=== PATIENT | male | born 1975 | race African-American/Black ===

== ENCOUNTER 2017-05-26 06:20 | Inpatient (IN) | payer OTHER ==
[~2017-05-26] VITALS: Ht 175.3 cm; Wt 63.5 kg
--- NOTE | 2017-05-26 06:24 | NUR ---
PT PELON ALS. TAKEN TO BED 5
[2017-05-26 06:26] VITALS: BP 113/67
--- NOTE | 2017-05-26 06:29 | NUR ---
41Y/M BIBA TO ED WITH C/O CHEST PAIN X 1 HR. PER MEDIC PT STARTED HAVING CHEST PAIN AFTER 2 HRS OF DIALYSIS AND, 300 ML FLUID REMOVAL, 2 NTG GIVEN. PER PT HE WAS DIAGNOSED BRONCHITIS YESTERDAY. HX. ESRD, HTN, ALCOHOLISM, AND KIDNEY DISEASE. BS 134 ON SCENE. TACHY ON MONITOR, O2 SAT 99, 15 LT O2 VIA MASK. CRACKLES NOTED ON BILATERAL LUNG BASES,NO OTHER S/S OF DISTRESS NOTED. ER MD MADE AWARE.
--- NOTE | 2017-05-26 06:42 | NUR ---
Dr. Trinh evaluating patient at bedside.
[2017-05-26] MEDS ORDERED: NACL 0.9% 1,000 ML IV ONE (06:51)
--- NOTE | 2017-05-26 07:09 | NUR ---
RT AT BEDSIDE FOR ABG
[2017-05-26 07:13] LABS: HEMATOCRIT 31.7 % (36-52); HEMOGLOBIN 10.4 g/dL (12.0-18.0); MEAN CORPUSCULAR HEMOGLOBIN 28 pg (27-31); MEAN CORPUSCULAR HGB CONC 33 g/dL (33-37); MEAN CORPUSCULAR VOLUME 84 fL (80-94); PLATELET COUNT (AUTO) 426 K/uL (140-450); RED BLOOD CELL COUNT(AUTO) 3.77 MIL/uL (4.20-6.10); RED CELL DISTRIBUTION WIDTH 18.3 % (11.6-13.7); WHITE BLOOD COUNT (AUTO) 13.6 K/uL (4.8-10.8)
--- NOTE | 2017-05-26 07:14 | NUR ---
TPt report given to SANCHEZ GALEAS. Transfer of care at this time.
--- NOTE | 2017-05-26 07:20 | NUR ---
X-Ray at bedside.
[2017-05-26 07:22] LABS: ALBUMIN 2.7 g/dL (3.4-5.0); ANION GAP 19.2 (8-16); CARBON DIOXIDE 26.7 mmol/L (21-32); POTASSIUM 3.9 mmol/L (3.5-5.1); TOTAL BILIRUBIN 0.7 mg/dL (0.0-1.0)
[2017-05-26 07:25] LABS: CREATININE 7.5 mg/dL (0.7-1.3)
[2017-05-26 07:34] LABS: LYMPHOCYTES % (MANUAL) 7 % (20-46); MONOCYTES % (MANUAL) 12 % (5-12)
--- NOTE | 2017-05-26 07:35 | NUR ---
TRIED O2 VUA NC AT 2 LPM BUT O2 SAT DROPS TO 89% PUT PT BACK TO FACE MASK; 02 SAT IS AT 95 %;WILL CONTINUE TO MONITOR PT.
--- NOTE | 2017-05-26 07:47 | NUR ---
PT SLEEPING;ALL MONITORS IN PLACED;PLACED PT IN HIGH FOWLERS POSITION;SAFETY MEASURES DONE;WILL CONTINUE TO MONITOR PT.
--- NOTE | 2017-05-26 08:15 | NUR ---
PT O2 SAT DROPS TO 89%;INSTRUCTED PT TO DO DEEP BREATHING;NOTIFIED ER MD;PUT PT TO 15 LPM VIA MASK;ALL MONITORS IN PLACED;WILL OSKAR UE TO MONITOR PT.
--- NOTE | 2017-05-26 08:20 | NUR ---
O2 SAT WENT UP TO 92%;WILL CONTINUE TO MONITOR PT.
--- NOTE | 2017-05-26 08:40 | NUR ---
PENNY AGUIRRE AT BEDSIDE.
[2017-05-26] MEDS ORDERED: ACETAMINOPHEN 325 MG TAB PO PRN (08:50)
[2017-05-26] MEDS ORDERED: ONDANSETRON 4 MG/2 ML VIAL IVP PRN (08:50)
[2017-05-26] MEDS ORDERED: DOCUSATE SODIUM 100 MG GELCAP PO PRN (08:50)
--- NOTE | 2017-05-26 08:58 | NUR ---
ASKED PT IF HE IS ABLE TO GIVE URINE SPECIMEN;PT STATES "NO".
[2017-05-26] MEDS ORDERED: ALBUTEROL SULFATE/IPRATROPIU 3 ML SOL IH PRN (09:05)
[2017-05-26 09:19] LABS: CHOL/HDL RATIO 8.8 (1-4.5); FREE T4 (FREE THYROXINE) 1.44 ng/dL (0.76-1.46); PHOSPHORUS 5.7 mg/dL (2.5-4.9); THYROID STIMULATING HORMONE 0.6 uIU/mL (0.34-3.74)
--- NOTE | 2017-05-26 09:19 | NUR ---
Patient will be admitted to care of DR NUNEZ. Admited to TELE. Will go to [id number]. Belongings list completed. Report to ELKE BRADFORD.
[2017-05-26 09:50] VITALS: BP 139/89
--- NOTE | 2017-05-26 09:50 | NUR ---
PATIENT ADMITTED TO THE UNIT FROM ER. PATIENT AMBULATORY. PATIENT AWAKE, ALERT, AND ORIENTED. LABORED BREATHING NOTED. PATIENT PUT ON NON-REBREATHER MASK 15L O2. O2 SAT AT 96%. PATIENT DENIES PAIN AT THIS TIME. AV SHUNT NOTED ON LEFT ARM. BRUIT AND THRILL NOTED. IV SITE NOTED ON RIGHT FOREARM. PATIENT PLACED ON TELE MONITORING. BED ON LOWEST POSITION, SIDE RAILS UP, AND CALL LIGHT WITHIN REACH. WILL CONTINUE TO MONITOR.
--- NOTE | 2017-05-26 10:00 | NUR ---
PATIENT'S TEMPERATURE IS 101.4 DEGREES. ADMINISTERED TYLENOL ORDERED. WILL CONTINUE TO MONITOR.
[2017-05-26] MEDS ORDERED: CARVEDILOL 6.25 MG TAB PO SCH (10:20)
[2017-05-26] MEDS ORDERED: LOSARTAN 50 MG TAB PO SCH (10:45)
[2017-05-26] MEDS ORDERED: CARVEDILOL 12.5 MG TAB PO SCH (10:50)
--- NOTE | 2017-05-26 11:00 | NUR ---
PATIENT'S TEMP RECHECKED. TEMP 99.8
[2017-05-26] MEDS ORDERED: ECOTRIN 81 MG TABEC PO SCH (11:50)
[2017-05-26] MEDS: ALBUTEROL SULFATE/IPRATROPIU 3 ML SOL IH SCH ×2 (11:55→19:26)
[2017-05-26 12:00] VITALS: BP 116/69
[2017-05-26] MEDS ORDERED: FERRIC GLUCONATE 125 MG in NACL 0.9% 100 ML IV SCH (14:30)
--- NOTE | 2017-05-26 15:40 | NUR ---
PATIENT SEEN BY DR MCCLOUD
[2017-05-26 16:00] VITALS: BP 125/78
[2017-05-26] MEDS ORDERED: LOSA25TA14 PO (16:05)
[2017-05-26] MEDS ORDERED: OXYM22SP NS (16:05)
[2017-05-26] MEDS ORDERED: CARV25TA PO (16:05)
[2017-05-26] MEDS ORDERED: CLON0.2T43 PO (16:06)
--- NOTE | 2017-05-26 17:30 | NUR ---
HEMODIALYSIS DONE. 2.5L OUT. PATIENT AWAKE AND ALERT. BP 116/73. HR 119 TEMP 99.6 O2 SAT 99% ON 45% FIO2
[2017-05-26] MEDS: DEXT 5% / NACL 0.45% 1,000 ML IV SCH (17:54)
[2017-05-26] MEDS: PIPER/TAZO 2.25GM/D5W PREMIX 50 ML IV SCH (17:55)
--- NOTE | 2017-05-26 18:00 | NUR ---
O2 SAT AT 87% ON 45% FIO2. LABORED BREATHING NOTED. RT NOTIFIED
--- NOTE | 2017-05-26 18:20 | NUR ---
RT ADJUSTED BIPAP FIO2 TO 100%. O2 SAT AT 97%
--- NOTE | 2017-05-26 18:56 | NUR ---
PATIENT LOOSENED THE BIPAP MASK VELCRO STRIPS, REMOVING THE TIGHT SEAL. PATIENT STATES HE FEELS BETTER THAT WAY. O2 SATURATION AT 97%. WILL CONTINUE TO MONITOR
--- NOTE | 2017-05-26 19:02 | NUR ---
PATIENT REQUESTED TO BE OFF THE BIPAP. PATIENT PLACED ON 9L O2 VIA OXYMIZER. O2 SAT 92%. WILL CONTINUE TO MONITOR
--- NOTE | 2017-05-26 19:15 | NUR ---
RECEIVED PT FROM ELKE BRADFORD PT IS AAOX4 AMBULATORY ON BIPAP FIOS 100% NOT DISTRESS NOTED RESP THERAPY IS HERE GIVEN BREATHING TX, AV SHUNT FOR DIALYSIS ON LEFT UA, ON TELEMETRY ST INITIAL ASSESSMENT DONE
--- NOTE | 2017-05-26 19:30 | NUR ---
PATIENT REPORT GIVEN TO NIGHT NURSE AT BEDSIDE. PATIENT IS IN STABLE CONDITION. PATIENT GETTING BREATHING TREATMENT AT THE MOMENT.
--- NOTE | 2017-05-26 19:36 | NUR ---
PT WAS REMOVED FROM BIPAP TO EAT, BUT I FIND PT IN MILD DISTRESS , SATS OF 84%, AND HARD TIME TO BREATH , USING ALL THE ACCS. PADMINI, .PLACED PT ON BIPAP OF 100 %, , PT WAS EXPT MOD AMOUT OF MUCUS PLUG CREAM OF COLOR TO SENDED TO THE LAB.
[2017-05-26 20:00] VITALS: BP 111/69
--- NOTE | 2017-05-26 21:30 | NUR ---
RESP THERAPY CHANGE FIO2 TO 75% PT GETTING SLEEP NOT DISTRESS NOTED ON TELEMETRY ST
[2017-05-26] MEDS ORDERED: NITROGLYCERIN 0.4 MG TAB SL PRN ×2 (21:55→22:10)
[2017-05-26] MEDS: CARVEDILOL 12.5 MG TAB PO SCH (22:01)
[2017-05-27] VITALS (60 sets, daily range): BP systolic 81–119; BP diastolic 51–77
[2017-05-27] MEDS: PIPER/TAZO 2.25GM/D5W PREMIX 50 ML IV SCH ×4 (00:03→17:45)
--- NOTE | 2017-05-27 00:05 | NUR ---
LAB REPORT CRITICAL VALUES TROPONIN 0.169 THE RESIDENT WILL BE NOTIFY
--- NOTE | 2017-05-27 00:10 | NUR ---
DR ROMERO WAS NOTIFY TROPONIN 0.169 AND ORDER TO FOLLOW PT ON BIPAP NOT CHEST PAIN, ON TELMETRY ST
[2017-05-27] MEDS ORDERED: HEPARIN PER PHARMACY MC PRN (00:15)
[2017-05-27] MEDS ORDERED: hePARIN / DEXT 5% PREMIX 250 ML IV SCH ×3 (00:15→17:20)
--- NOTE | 2017-05-27 01:44 | NUR ---
HEPARIN DRIP STARTED AT 1100UNITS/H ON CLOSE MONITORING RESP THERAPY IS HERE 02 87% FI0S WAS CHANGE TO 80%
--- NOTE | 2017-05-27 02:31 | NUR ---
DR ROMERO WAS NOTIFY PT CONDITION HR 170 AND SHE COMES TO SEE THE PT
--- NOTE | 2017-05-27 02:45 | NUR ---
RESP THERAPKY IS HERE VITAL SIGNS, TEMP 99.3 HR 153 BP 144/76 02 88% AND FIO2 WAS ALREADY INCREASE TO 100.
[2017-05-27] MEDS ORDERED: DILTIAZEM 25 MG/5 ML VIAL IVP SCH (03:00)
--- NOTE | 2017-05-27 03:02 | NUR ---
DR ROMERO SEE THE PT RESP THERAPY IS HERE AND ORDER PT TO BE TRANSFER TO ICU, REPORT IS GIVEN TO LEE MORA RN ICU
--- NOTE | 2017-05-27 03:05 | NUR ---
PT IS TRANSFER TO ICU TO BED # 5
[2017-05-27] MEDS ORDERED: DILTIAZEM 25 MG/5 ML VIAL IVP ONE ×2 (03:06→03:48)
--- NOTE | 2017-05-27 03:10 | NUR ---
PT TRANSFER TO ICU DUE TO BP DECREASED TO 79/62, AND HR TO 176, ABG DONE, DR DOWNING TO BED SIDE.
[2017-05-27] MEDS ORDERED: DILTIAZEM 125 MG in DEXTROSE 5% 100 ML IV SCH (03:25)
[2017-05-27] MEDS ORDERED: DILTIAZEM 125 MG/25 ML VIAL IV ONE (03:34)
[2017-05-27] MEDS ORDERED: KETAMINE 500 MG/5 ML VIAL IVP SCH (03:55)
[2017-05-27] MEDS ORDERED: KETAMINE 500 MG/5 ML VIAL ONE (04:00)
--- NOTE | 2017-05-27 04:30 | NUR ---
PATIENT RECEIVED FROM TELE TO ICU5 AT 0310, PATIENT WAS ALERT AND AWAKE, VERBAL, ON NRM, ATRIAL FIB ON THE MONITOR WITH HR 162-170. RESPIRATORY THERAPIST KEISHA GETTING READY WITH BIPAP TO USE, DR ROMERO (RESIDENT) AT BEDSIDE. ABG WAS ORDERED, CARDIZEM DRIP ORDERED AND STARTED AROUND 0339 AT 10 MG/HR. PATIENT FOR POSSIBLE INTUBATION, DR. OSEGUERA CALLED DOCTOR DOWNING FROM ED FOR ASSISTANCE. DR. DOWNING CAME TO ICU, ASSESSED PATIENT, INSTRUCTED TO GIVE ANOTHER CARDIZEM 10 MG IVP, DR. OSEGUERA ENTERED ORDER, CARDIZEM 10 MG IVP GIVEN SLOWLY AT 0341, CARDIZEM DRIP INCREASED TO 15 MG/HR AT 0346, HR STILL ELEVATED. DR. DOWNING PLANNED TO CARDIOVERT, KETAMINE 70 MG IVP GIVEN AT 0400, CARDIOVERSION DONE AT 0407, RHYTHM CONVERTED TO ST, HR 116. EKG DONE STAT, SHOWED SINUS TACHYCARDIA. ABG AND CXR ORDERED ALSO. PATIENT ADMITTED ALSO FROM TELE WITH HEPARIN DRIP AT 1100 UNITS/HR.
--- NOTE | 2017-05-27 04:58 | NUR ---
at 0420, pt report received from Amarilys amaya RN. pt awake and able to follow simple commands. on bipap fio2 at 95%. pt denies any pain, post cardioversion. sinus tach per litigation associate. on cardizem drip infusing at 15mg/hr and on heparin drip infusing at 1100 units/hr. iv sites on the rt fa g18 and rt 22 rt hand. hd site av shunt to left upper arm. abd soft and not distended. able to move all extremities. no signs of discomfort noted.
--- NOTE | 2017-05-27 05:30 | NUR ---
PT ON AND OFF SLEEP. NO RESP DISTRESS. REMAINS ON BIPAP 16/8, RATE 12, FIO2 100%. SR-ST PER ENROLLMENT MANAGEMENT VICE PRESIDENT, HR 90'-TO LOW 100's bpm. STILL INFUSING HEPARIN DRIP AT 1100 UNITS/HR AND CARDIZEM DRIP AT 15 MG/HR. NO COMPLAIN OF PAIN NOTED.
--- NOTE | 2017-05-27 06:00 | NUR ---
CARDIZEM DRIP TITRATED, DECREASED TO 10 MG/HR. HR ON TH E 90's bpm, BP 90/57. PT A LITTLE ANXIOUS WITH RR ON THE 30's. WILL CONTINUE TO MONITOR.
--- NOTE | 2017-05-27 06:30 | NUR ---
TITRATED CARDIZEM DRIP, DECREASED TO 5 MG/HR. HR ON THE 80's bpm, NSR PER WOOL GRADER, BP 97/59. DENIES PAIN.
[2017-05-27] MEDS: ALBUTEROL SULFATE/IPRATROPIU 3 ML SOL IH SCH ×3 (06:40→13:00)
--- NOTE | 2017-05-27 07:15 | NUR ---
PT REPORT GIVEN AT BEDSIDE TO DAY SHIFT NURSE KASIA. STILL INFUSING HEPARIN DRIP AT 11OO UNITS/HR AND CARDIZEM DRIP AT 5MG/HR. REMAINS ON NSR WITH HR ON THE 80's bpm.
--- NOTE | 2017-05-27 07:15 | NUR ---
RECEIVED REPORT FROM NIGHT RN FOR CONTINUITY OF CARE. PATIENT IS AWAKE, ALERT AND ORIENTED TO PERSON, PLACE, DATE AND TIME. ABLE TO FOLLOW SIMPLE COMMAND. SKIN WARM AND DRY. NO EDEMA NOTED. ON BIPAP, FIO2 AT 100%. RIGHT HAND PERIPHERAL IV G22 RUNNING WITH HEPARIN AT 1100 UNITS/HR. RIGHT FA PERIPHERAL IV RUNNING WITH CARDIZEM DRIP AT 5 ML/H AND D5 1/2 NS AT 20 ML/H. SALLY AV SHUNT, WITH DRESSING DRY AND INTACT. CALL LIGHT WITHIN REACH. WILL MONITOR PATIENT.
--- NOTE | 2017-05-27 07:45 | NUR ---
DR. NUNEZ AND RESIDENT PHYSICIANS ROUNDED ON PATIENT, WILL FOLLOW UP WITH ORDERS.
[2017-05-27 08:14] LABS: HEMATOCRIT 31.7 % (36-52); HEMOGLOBIN 9.9 g/dL (12.0-18.0); MEAN CORPUSCULAR HEMOGLOBIN 27 pg (27-31); MEAN CORPUSCULAR HGB CONC 31 g/dL (33-37); MEAN CORPUSCULAR VOLUME 85 fL (80-94); PLATELET COUNT (AUTO) 465 K/uL (140-450); RED BLOOD CELL COUNT(AUTO) 3.72 MIL/uL (4.20-6.10); RED CELL DISTRIBUTION WIDTH 19.6 % (11.6-13.7); WHITE BLOOD COUNT (AUTO) 19.1 K/uL (4.8-10.8)
--- NOTE | 2017-05-27 08:24 | NUR ---
PATIENT HAS BEEN SCREENED AND CATEGORIZED HIGH NUTRITION RISK. PATIENT WILL BE SEEN WITHIN 1-2 DAYS OF ADMISSION. 05/26/17-05/27/[address]
[2017-05-27 08:30] LABS: LYMPHOCYTES % (MANUAL) 15 % (20-46); MONOCYTES % (MANUAL) 6 % (5-12)
--- NOTE | 2017-05-27 08:59 | NUR ---
RT AT BEDSIDE, ON BIPAP FIO2 TITRATED TO 85%. WILL MONITOR PATIENT.
[2017-05-27] MEDS: LOSARTAN 50 MG TAB PO SCH (09:00)
[2017-05-27] MEDS ORDERED: LACTOBACILLUS RHAMNOSUS GG 1 EACH CAP PO SCH (09:00)
[2017-05-27] MEDS ORDERED: DILTIAZEM 30 MG TAB PO SCH (09:00)
[2017-05-27] MEDS: LACTOBACILLUS RHAMNOSUS GG 1 EACH CAP PO SCH (09:00)
[2017-05-27] MEDS: CARVEDILOL 12.5 MG TAB PO SCH (09:00)
--- NOTE | 2017-05-27 09:15 | NUR ---
PATIENT COMPLAINING OF SHORTNESS OF BREATH, RR 33. RT MADE AWARE.
--- NOTE | 2017-05-27 09:19 | NUR ---
PATIENT COMPLAIN OF SHORTNESS OF BREATH PRN TX GIVEN. PATIENT STABLE NO RESP DISTRESS
--- NOTE | 2017-05-27 09:20 | NUR ---
MORNING MEDICATIONS NOT GIVEN, PATIENT IS ON CONTINUOUS BIPAP AT THIS TIME. DR. ARCE MADE AWARE.
--- NOTE | 2017-05-27 09:35 | NUR ---
DR. ARCE NOTIFIED OF NEED TO RECOLLECT SPUTUM PER LAB.
[2017-05-27 10:03] LABS: CARBON DIOXIDE 24.1 mmol/L (21-32); POTASSIUM 5.1 mmol/L (3.5-5.1)
[2017-05-27 10:04] LABS: CREATININE 9.1 mg/dL (0.7-1.3)
[2017-05-27 10:31] LABS: MAGNESIUM 1.9 mg/dL (1.8-2.4)
[2017-05-27] MEDS ORDERED: LORazepam 1 MG TAB PO PRN (10:40)
[2017-05-27] MEDS ORDERED: VANCOMYCIN PER PHARMACY MC PRN (11:05)
[2017-05-27 11:15] LABS: TRANSFERRIN 96 mg/dL (200-370)
--- NOTE | 2017-05-27 11:15 | NUR ---
DR. MCCLOUD IN AND SEEN PATIENT. WILL FOLLOW UP WITH ORDERS.
[2017-05-27] MEDS ORDERED: VANCOMYCIN 1GM/DEXT 5% PREMIX 200 ML IV SCH (11:25)
--- NOTE | 2017-05-27 13:00 | NUR ---
DR. SADLER IN AND SEEN PATIENT. SCHEDULED PATIENT FOR DIALYSIS TOMORROW 05/28/17. WILL CALL CUNHAARISTEO VANG.
--- NOTE | 2017-05-27 13:34 | NUR ---
05/27/17 RD INITIAL ASSESSMENT COMPLETED PLEASE REFER TO NUTRITION ASSESSMENT UNDER CARE ACTIVITY FOR ESTIMATED NUTRITIONAL NEEDS. 1. CONTINUE RENAL DIET 2. CONTINUE RENAL MVI 1X/DAILY 3. IF NUTRITION SUPPORT NEEDED, PLEASE CONSULT RD FOR RECOMMENDATIONS 4. RD TO FOLLOW UP WITHIN 2-3 DAYS; HIGH RISK JESÚS SAMANIEGO, SANIA
--- NOTE | 2017-05-27 13:39 | NUR ---
REHAN MUÑIZ FROM [facility] NOTIFIED OF ORDER FOR HEMODIALYSIS TOMORROW.
--- NOTE | 2017-05-27 14:15 | NUR ---
CARDIZEM DRIP STOPPED AT THIS TIME DUE TO PARAMETERS BP 91/56. RESIDENT PHYSICIAN, DR. ARCE, MADE AWARE.
[2017-05-27] MEDS: DEXT 5% / NACL 0.45% 1,000 ML IV SCH (14:33)
[2017-05-27] MEDS ORDERED: PROBIOTIC SCREEN 1 EA MISC MC PRN (14:35)
--- NOTE | 2017-05-27 17:10 | NUR ---
DR. SHIN IN AND SEEN PATIENT. WITH ORDERS TO D/C HEPARIN WHEN XARELTO IS STARTED.
--- NOTE | 2017-05-27 17:30 | NUR ---
CALLED [facility]. [PER [facility] PT HAD PNEUMONIA VACCINE 05/17/2015. INFORMED PT.
[2017-05-27] MEDS: CALCIUM ACETATE 667 MG TAB PO SCH (17:43)
[2017-05-27] MEDS: RIVAROXABAN 15 MG TAB PO SCH (17:46)
--- NOTE | 2017-05-27 19:10 | NUR ---
REPORT GIVEN TO NIGHT RN FOR CONTINUITY OF CARE. PATIENT IN STABLE CONDITION.
--- NOTE | 2017-05-27 19:16 | NUR ---
RECEIVED REPORT FROM SANCHEZ PEDROZA. PT IS A/O X4. VERBALLY RESPONSIVE. ABLE TO COMMUNICATE NEEDS. NO C/O PAIN OR DISCOMFORT NOTED. NO C/O SOB. PT CONTINUE ON BIPAP. TOLERATING WELL. O2 SAT AT 99%. SR ON MONITOR. ABLE TO MOVE ALL EXTREMITIES. SKIN IS INTACT. L AV SHUNT NOTED. BRUIT AND THRILL NOTED. R FOREARM 18 GAUGE NOTED. INTACT AND PATENT. SALINE LOCKED. R HAND 22 GAUGE NOTED. INTACT AND PATENT. PT ABLE TO URINATE INDEPENDENTLY IN URINAL. SAFETY PRECAUTION MAINTAINED. BED AT LOWEST SETTING. CALL LIGHT WITHIN REACH. WILL CONTINUE TO MONITOR FOR CHANGES.
[2017-05-27] MEDS: ATORVASTATIN 20 MG TAB PO SCH (20:02)
--- NOTE | 2017-05-27 20:03 | NUR ---
MEDICATION GIVEN PO TOLERATED WELL.
--- NOTE | 2017-05-27 21:00 | NUR ---
PT IS A/O X4. VERBALLY RESPONSIVE. DENIES N/V. RESTING COMFORTABLY IN BED. WILL CONTINUE TO MONITOR.
--- NOTE | 2017-05-27 21:35 | NUR ---
PATIENT C/O NAUSEA,ZOFRAN GIVEN IV PUSH ORDER,ALSO C/O ANXIETY PO ATIVAN GIVEN PO ORDER RANJAN WELL.
--- NOTE | 2017-05-27 22:00 | NUR ---
MOM AT BEDSIDE. PT A/O X4. VERBALLY RESPONSIVE. NO S/X OF ACUTE DISTRESS NOTED. WILL CONTINUE TO MONITOR.
--- NOTE | 2017-05-27 23:00 | NUR ---
PT SLEEPING IN BED. RESTING COMFORTABLY WITH BIPAP. WILL CONTINUE TO MONITOR.
[2017-05-28] VITALS (20 sets, daily range): BP systolic 86–131; BP diastolic 45–76
[2017-05-28] MEDS: PIPER/TAZO 2.25GM/D5W PREMIX 50 ML IV SCH ×2 (00:30→05:38)
--- NOTE | 2017-05-28 00:33 | NUR ---
IV ABT ZOSYN 2.25 GRAM GIVEN ORDER VIA PIGGY BAG TO RIGHT FOREARM TOLERATED WELL
--- NOTE | 2017-05-28 01:00 | NUR ---
PT SLEEPING IN BED. NO S/SX OF ACUTE DISTRESS NOTED. WILL CONTINUE TO MONITOR.
--- NOTE | 2017-05-28 02:00 | NUR ---
PT SLEEPING IN BED. NO S/SX OF ACUTE DISTRESS NOTED. WILL CONTINUE TO MONITOR.
--- NOTE | 2017-05-28 03:00 | NUR ---
PT SLEEPING IN BED. NO S/SX OF ACUTE DISTRESS NOTED. WILL CONTINUE TO MONITOR.
--- NOTE | 2017-05-28 04:00 | NUR ---
PT SLEEPING IN BED. NO S/SX OF ACUTE DISTRESS NOTED. WILL CONTINUE TO MONITOR.
[2017-05-28 05:00] LABS: HEMATOCRIT 27.4 % (36-52); HEMOGLOBIN 8.9 g/dL (12.0-18.0); MEAN CORPUSCULAR HEMOGLOBIN 27 pg (27-31); MEAN CORPUSCULAR HGB CONC 32 g/dL (33-37); MEAN CORPUSCULAR VOLUME 84 fL (80-94); PLATELET COUNT (AUTO) 407 K/uL (140-450); RED BLOOD CELL COUNT(AUTO) 3.25 MIL/uL (4.20-6.10); RED CELL DISTRIBUTION WIDTH 18.8 % (11.6-13.7)
--- NOTE | 2017-05-28 05:00 | NUR ---
AMBULATE TO BEDSIDE COMMODE. LARGE SOFT FORM STOOL NOTED.
--- NOTE | 2017-05-28 05:38 | NUR ---
IV ABT ZOSYN GIVEN VIA PIGGY BAG TOLERATED WELL.
[2017-05-28 06:14] LABS: MAGNESIUM 2.2 mg/dL (1.8-2.4); PHOSPHORUS 8.9 mg/dL (2.5-4.9)
[2017-05-28 06:15] LABS: ANION GAP 21.2 (8-16); POTASSIUM 5.2 mmol/L (3.5-5.1)
[2017-05-28 06:39] LABS: CREATININE 10.5 mg/dL (0.7-1.3)
[2017-05-28 06:42] LABS: HEPATITIS A ANTIBODY IGM Negative (Negative); HEPATITIS B CORE AB TOTAL Negative (Negative); HEPATITIS B SURFACE AB Reactive (.); HEPATITIS B SURFACE ANTIGEN Negative (Negative)
--- NOTE | 2017-05-28 06:45 | NUR ---
CRITICAL LAB RESULT BUN AND CREATININE RECEIVED. PT WILL RECEIVE DIALYSIS TODAY. DR. DOMINGUEZ TO REPORT RESULT. AWAITING CALL BACK
[2017-05-28] MEDS: ALBUTEROL SULFATE/IPRATROPIU 3 ML SOL IH SCH ×4 (06:52→19:29)
--- NOTE | 2017-05-28 07:02 | NUR ---
RECEIVED PT ON BIPAP 17/05 12 90%, PT TOLERATING WELL AT THIS TIME, NO SKIN BREAK DOWN OR REDNESS FROM MASK. BIPAP ALARM ON AND FUNCTIONING, BI PAP PLUGGED INTO RED-OUTLET.WILL CONTINUE TO MONITOR.
--- NOTE | 2017-05-28 07:10 | NUR ---
FIO2 TITRATED TO 80%. PT NOT SOB AND NOT IN RESPIRATORY DISTRESS. NURSE TUNG MADE AWARE. WILL CONTINUE TO MONITOR.
[2017-05-28 07:11] LABS: LYMPHOCYTES % (MANUAL) 8 % (20-46); MONOCYTES % (MANUAL) 9 % (5-12)
[2017-05-28 07:13] LABS: BUFFY COAT SMEAR PREP NO
--- NOTE | 2017-05-28 07:14 | NUR ---
REPORT GIVEN TO SANCHEZ PERKINS. PT IS STABLE.
--- NOTE | 2017-05-28 07:15 | NUR ---
RECEIVED PATIENT ON BED.INITIAL ASSESSMENT DONE TO PATIENT.RIGHT HAND SALINE LOCK PATENT AND INTACT.NO SIGNS OF INFILTRATION.RIGHT FOREARM 18 GAUGE PIV WITH D5.0.45 NS AT 20 ML/H . NO SIGNS OF INFILTRATION.NSR ON THE MONITOR.PT ON BIPAP WITH SETTING IPAP=14,EPAP=8,RATE =12.FIO2=80 PERCENT.PT TOLERATING SO FAR.NO CO PAIN.SHORTNESS OF BREATH ON EXERTION.
--- NOTE | 2017-05-28 07:38 | NUR ---
PT TAKEN OFF OF BIPAP TO EAT AND PLACED ON 6L OXYMIZER. PT TOLERATING WELL AT THIS TIME. SPO2 93%, PT NOT COMPLAINING OF SOB AT THIS TIME .
--- NOTE | 2017-05-28 07:51 | NUR ---
PT PLACED ON 50% VENTURI DUE TO DESATURATING. SPO2 92%. PT NOT SOB AT THIS TIME. PT C/O OF CHEST PAIN. NURSE MADDIE AWARE.
[2017-05-28] MEDS: HYDROcodone/APAP 7.5/325 MG 1 TAB PO PRN ×2 (07:52→20:05)
[2017-05-28] MEDS: CALCIUM ACETATE 667 MG TAB PO SCH ×3 (08:30→17:53)
--- NOTE | 2017-05-28 08:30 | NUR ---
PT ASLEEP DUE TO NORCO WAS GIVEN.PT ON BIPAP.PT IS NOT FULLY AWAKE TO TAKE MEDS.
--- NOTE | 2017-05-28 08:40 | NUR ---
JOSHUA RAMIREZ CALLED AND WILL BE COMING IN AN HOUR SO DO NOT GIVE AM MEDS.
[2017-05-28] MEDS: LOSARTAN 50 MG TAB PO SCH (09:00)
[2017-05-28] MEDS: LACTOBACILLUS RHAMNOSUS GG 1 EACH CAP PO SCH (09:00)
[2017-05-28] MEDS: AMIODARONE 200 MG TAB PO SCH (09:00)
[2017-05-28] MEDS: VIT-B COMP/VIT-C/FOLIC ACID 1 TAB PO SCH (09:00)
[2017-05-28] MEDS: METOPROLOL SUCCINATE 50 MG TABER PO SCH ×2 (09:00→18:38)
--- NOTE | 2017-05-28 09:00 | NUR ---
ALL 9 AM MEDS WERE NOT GIVEN DUE TO HD RN COMING.
--- NOTE | 2017-05-28 09:22 | NUR ---
DECREASED FI02 FROM 80% TO 70%
--- NOTE | 2017-05-28 09:48 | NUR ---
DR ROGERS FONSECATED ABOUT PATIENTS CONDITION ESPECIALLY PT CO PAIN WHEN COUGHING THIS AM AND WITH DIFFICULTY COUGHING OUT PHLEGM.PT WITH RELIEF FROM NORCO.
[2017-05-28] MEDS ORDERED: VANCOMYCIN PER PHARMACY MC PRN (10:10)
--- NOTE | 2017-05-28 11:16 | NUR ---
FIO2 DECREASED TO 60%. PT IS NOT SOB AND NOT IN RESPIRATORY DISTRESS AT THIS TIME , REMAINS TACHYPNEIC. PT IS SLEEPING BUT WAKES UP WHEN SPOKEN TO.
[2017-05-28] MEDS ORDERED: LEVOFLOXACIN 750 MG/D5W PREMIX 150 ML IV SCH (15:00)
--- NOTE | 2017-05-28 17:11 | NUR ---
PT STATES HE WANTS TO EAT, BIPAP REMOVED PLACED ON 7L OXYMIZER PT IS NOT SHOWING SIGNS OF SOB OR RESPIRATORY DISTRESS WILL CONTINUE TO MONITOR.
[2017-05-28] MEDS: RIVAROXABAN 15 MG TAB PO SCH (18:00)
[2017-05-28] MEDS: DEXT 5% / NACL 0.45% 1,000 ML IV SCH (18:04)
[2017-05-28] MEDS: guaiFENesin 20 MG/ML UDC PO PRN (18:32)
--- NOTE | 2017-05-28 19:15 | NUR ---
REPORT GIVEN TO CLARIZE FOR CONTINUITY OF CARE
--- NOTE | 2017-05-28 19:30 | NUR ---
RECIEVED PATIENT FROM NAHED RN,PATIENT RESTING WELL,NO S/S OF RESP.DISTRESS,NO SOB. CONT ON OXYGEN ORDERED RANJAN WELL. PRODUCTIVE COUGH NOTED WITH YELLOW PALE SPUTUM. DENIES PAIN AT THIS TIME. CONTINUE ON REHABILITATION TECH AT BED SIDE. SR SHOWED ON MONITOR.IV LINE ON RFA WITH DEX 5% IN NS RUNNING AT 20 CC/HR AND RIGHT WRIST FLUSHING WELL. LEFT IV SHUNT FOR DIALYSIS. PER REPORT PATIENT HAD DIALYSIS TO DAY TOLERATED WELL.SKIN INTACT.ABLE TO MOVE EXTREMITIES FREELY.CONTINENT BOWEL AND BLADDER.CONT TO MONITOR.
--- NOTE | 2017-05-28 20:10 | NUR ---
PATIENT WAS COMPLAINT OF PAIN 03/13 . LISA GIVEN ORDER. Addendum: 05/28/17 at 2110 by Drake Hernadez RT ERROR
--- NOTE | 2017-05-28 20:10 | NUR ---
PATIENT COMPLAIN OF PAIN 6/10,NORCO GIVEN ORDERED.
--- NOTE | 2017-05-28 20:34 | NUR ---
MOTHER AT BED SIDE Addendum: 05/28/17 at 2110 by Drake Hernadez RT ERROR Addendum: 05/28/17 at 2111 by Drake Hernadez RT ERROR
--- NOTE | 2017-05-28 20:39 | NUR ---
MOTHER AT BED SIDE
[2017-05-28] MEDS: ATORVASTATIN 20 MG TAB PO SCH (20:56)
--- NOTE | 2017-05-28 21:00 | NUR ---
RE CHECK TEMP 97.2 .DENIES ANY PAIN AT THIS TIME.CONTINUE TO MONITOR.
--- NOTE | 2017-05-28 22:00 | NUR ---
COME TO VISIT.
--- NOTE | 2017-05-28 22:52 | NUR ---
ANSELMO ATE HIS DINNER ABOUT 70%.
--- NOTE | 2017-05-28 23:00 | NUR ---
PATIENT HAS BOWEL MOVEMENT ,MEDIUM,SOFT,GREENISH COLOR.
[2017-05-29] VITALS (9 sets, daily range): BP systolic 98–146; BP diastolic 75–94
[2017-05-29] MEDS: guaiFENesin 20 MG/ML UDC PO PRN (01:30)
--- NOTE | 2017-05-29 01:30 | NUR ---
C/O COUGH,INTERMITTEN COUGH WITH WHITE SMALL SECRETION NOTED,COUGH SYRUP GIVEN ORDER TAKE PO TOLERATED WELL.NO RESP DISTRESS,NO SOB.SPO2 95%.
[2017-05-29] MEDS: HYDROcodone/APAP 7.5/325 MG 1 TAB PO PRN ×4 (01:49→20:04)
--- NOTE | 2017-05-29 01:56 | NUR ---
C/O PAIN ON RIGHT CHEST AREA 6/10, LUNGS SOUND CLEAR,SPO2 94-96%,NO S/S OF RESP.DISTRESS,NO SOB. NORCO GIVEN ORDER FOR PAIN. TAKE PO RANJAN WELL.ENCOURRAGE TO TAKE WARM WATER INSTEAD OF ICE.PATIENT SAID UNDERSTANDING AND DRINK SOME WARM WATER.
--- NOTE | 2017-05-29 02:30 | NUR ---
PATIENT SLEEP WELL, NO S/S OF PAIN AT THIS TIME. NO RESP DISTRESS,NO SOB NOTED.
--- NOTE | 2017-05-29 03:00 | NUR ---
PATIENT SLEEP WELL
--- NOTE | 2017-05-29 04:00 | NUR ---
PATIENT SLEEP WELL.
--- NOTE | 2017-05-29 05:00 | NUR ---
PATIENT AWAKE,DENIES ANY PAIN.NO RESPIRATORY DISTRESS NOTE.
--- NOTE | 2017-05-29 06:00 | NUR ---
BLOOD DRAWN DONE BY LAUNDRY SUPERINTENDENT.
[2017-05-29] MEDS: ALBUTEROL SULFATE/IPRATROPIU 3 ML SOL IH SCH ×3 (06:53→19:04)
[2017-05-29 07:11] LABS: HEMATOCRIT 27.6 % (36-52); HEMOGLOBIN 8.7 g/dL (12.0-18.0); MEAN CORPUSCULAR HEMOGLOBIN 27 pg (27-31); MEAN CORPUSCULAR HGB CONC 32 g/dL (33-37); MEAN CORPUSCULAR VOLUME 85 fL (80-94); PLATELET COUNT (AUTO) 469 K/uL (140-450); RED BLOOD CELL COUNT(AUTO) 3.25 MIL/uL (4.20-6.10); RED CELL DISTRIBUTION WIDTH 19.1 % (11.6-13.7); WHITE BLOOD COUNT (AUTO) 24.5 K/uL (4.8-10.8)
[2017-05-29 07:22] LABS: ANION GAP 19.4 (8-16); CARBON DIOXIDE 25.3 mmol/L (21-32); POTASSIUM 4.7 mmol/L (3.5-5.1)
[2017-05-29 07:24] LABS: CREATININE 8.2 mg/dL (0.7-1.3); MAGNESIUM 2.2 mg/dL (1.8-2.4); PHOSPHORUS 6.7 mg/dL (2.5-4.9)
--- NOTE | 2017-05-29 07:30 | NUR ---
RECEIVED REPORT FORM SANCHEZ MAHAN. PT ALERT AND AWAKE AND ORIENTED X4. RIGHT FOREARM PERIPHERAL LINE #18. RIGHT WRIST SALINE LOCK #22. NOTED ON OXYMIZER @7L/MIN AND 95 SPO2. BOTH LINES PATENT WITH NO S/SX OF INFILTRATION OR PHLEBITIS NOTED. NO BP CUFF AND BLOOD DRAW FROM LEFT ARM NOTED DUE TO DIALYSIS SHUNT SITE ON LEFT UPPER ARM. BRUIT AND THRILL PRESENT. SKIN INTACT. PT DENIES PAIN OR DISCOMFORT AND NO ACUTE DISTRESS NOTED. SAFETY PRECAUTIONS CARRIED OUT. BED IN LOWEST POSITION. S/R UP AND CALL LIGHT IN REACH. SINUS RHYTHM NOTED. WILL CONTINUE TO MONITOR. Addendum: 05/29/17 at 1059 by Cande Smith RN CHARTED REPORT RECEIVED FROM SANCHEZ MAHAN IN ERROR. RECEIVED REPORT FROM SANCHEZ GILMAN.
[2017-05-29] MEDS: DEXT 5% / NACL 0.45% 1,000 ML IV SCH (07:49)
[2017-05-29 07:55] LABS: LYMPHOCYTES % (MANUAL) 6 % (20-46); MONOCYTES % (MANUAL) 10 % (5-12)
--- NOTE | 2017-05-29 08:30 | NUR ---
MOTHER AT BED SIDE
[2017-05-29] MEDS: CALCIUM ACETATE 667 MG TAB PO SCH ×3 (08:31→17:40)
[2017-05-29] MEDS: VIT-B COMP/VIT-C/FOLIC ACID 1 TAB PO SCH (08:34)
[2017-05-29] MEDS: LACTOBACILLUS RHAMNOSUS GG 1 EACH CAP PO SCH (08:34)
[2017-05-29] MEDS: LOSARTAN 50 MG TAB PO SCH (08:35)
[2017-05-29] MEDS: AMIODARONE 200 MG TAB PO SCH (08:35)
[2017-05-29] MEDS ORDERED: VANCOMYCIN 1GM/DEXT 5% PREMIX 200 ML IV SCH (09:10)
--- NOTE | 2017-05-29 10:13 | NUR ---
DR. NUNEZ AND THE GROUP AT BED SIDE. WILL FOLLOW UP ON ORDERS.
--- NOTE | 2017-05-29 10:43 | NUR ---
DR. ODOM IN TO SEE PT. WILL FOLLOW UP ON ORDERS.
--- NOTE | 2017-05-29 12:00 | NUR ---
CHECKED ON PT. ALL NEEDS MET. CALL LIGHT IN REACH. DENIES PAIN. WILL CONTINUE TO MONITOR.
[2017-05-29 13:34] LABS: FERRITIN 2787 ng/mL (30 - 400)
--- NOTE | 2017-05-29 14:02 | NUR ---
VERBAL REPORT GIVEN TO ELKE RN AT TELEMETRY. PT IS GOING TO BE TRANSFERRED TO ROOM# 121B. ALL QUESTIONS ANSWERED.
--- NOTE | 2017-05-29 14:34 | NUR ---
05/29/17 RD FOLLOW UP COMPLETED PLEASE REFER TO NUTRITION PROGRESS NOTE UNDER CARE ACTIVITY FOR ESTIMATED NUTRITIONAL NEEDS. RD RECOMMENDATIONS: 1. RECOMMEND CONTINUE RENAL DIET; SUFFICIENT TO MEET >75% OF ESTIMATED DAILY NUTRITIONAL NEEDS. 2. CONTINUE NEPHRO-JUS 1X/DAILY 3. RD F/U IN 2-3 DAYS; HIGH RISK JOSÉ LUIS WRIGHT MBA, RD
--- NOTE | 2017-05-29 14:35 | NUR ---
PT WAS TRANSFERRED TO ROOM 121B IN TELEMETRY WITH STABLE CONDITION.
--- NOTE | 2017-05-29 14:36 | NUR ---
RECEIVED PATIENT FROM ICU. PATIENT AMBULATORY, AWAKE, ALERT AND ORIENTED. NO SIGNS AND SYMPTOMS OF DISTRESS NOTED. PATIENT ON 02 7L VIA OXYMIZER. IV SITE NOTED ON RIGHT FOREARM, ASYMPTOMATIC, INTACT, AND PATENT. IVF RUNNING WELL. LEFT UPPER ARM AV SHUNT NOTED. BRUIT AND THRILL NOTED. BED IN LOWEST POSITION, SIDE RAILS UP AND CALL LIGHT WITHIN REACH. PATIENT REPORTS OF 6/10 ABDOMINAL PAIN. PATIENT MEDICATED. WILL CONTINUE TO MONITOR.
--- NOTE | 2017-05-29 16:00 | NUR ---
CHECKED ON PATIENT. PATIENT IS RESTING IN BED COMFORTABLY. NO SIGNS AND SYMPTOMS OF DISTRESS NOTED. NO COMPLAINTS OF PAIN AT THIS TIME. BED IS IN LOWEST POSITION, SIDE RAILS UP, AND CALL LIGHT WITHIN REACH.
[2017-05-29] MEDS: RIVAROXABAN 15 MG TAB PO SCH (17:40)
--- NOTE | 2017-05-29 19:14 | NUR ---
PATIENT REPORT GIVEN AT BEDSIDE TO EVENING NURSE FOR CONTINUITY OF CARE. PATIENT IS IN STABLE CONDITION.
--- NOTE | 2017-05-29 19:23 | NUR ---
RECEIVED FROM AM RN IN BED WITH 7LPM/OYMYZER WITH 02 SAT 0F 97 % . ALERT AND ORIENTED SITTING UP IN BED AND TALKING TO A FRIEND ON THE PHONE. NO SOB. NO RESTLESSNESS NOTED. CALL LIGHT WITH IN REACH AND LEFT UPPER ARM WITH AV SHUNT FOR HD +BRUIT AND THRILL. IVF SITE PATENT AND NO INFILTRATION. ROM X 4.
[2017-05-29] MEDS: ATORVASTATIN 20 MG TAB PO SCH (20:01)
--- NOTE | 2017-05-29 21:50 | NUR ---
ADDED EXTENSION OXYGEN TUBING FOR PT AFTER PT C/O OF SOB WHEN AMBULATING TO BATHROOM WITHOUT OXYGEN. PT'S RN, NEGRITO INFORMED OF ADDED TUBING.
--- NOTE | 2017-05-30 | NUR ---
PT. STILLO AWAKE AT TIS TIME WATCHING TV. NO COMPLAINTS. MEDICATED WITH PRN PAIN RELIEVER REQUESTED. STILL WITH 02 AT 7LPM/OXYMIZER. CALL LIGHT WITH IN REACH. NO SOB COMPLAINTS.
[2017-05-30 00:14] VITALS: BP 150/88
[2017-05-30] MEDS: HYDROcodone/APAP 7.5/325 MG 1 TAB PO PRN ×5 (00:16→20:11)
[2017-05-30 03:34] VITALS: BP 140/82
--- NOTE | 2017-05-30 03:37 | NUR ---
SLEEPING. NO RESTLESSNESS. TELEMETRY MONITORING.
--- NOTE | 2017-05-30 04:20 | NUR ---
WAKE UP AT THIS TIME AND ASKED FOR PAIN RELIEVER. MEDICATED REQUESTED.
[2017-05-30 05:58] LABS: HEMATOCRIT 27.9 % (36-52); HEMOGLOBIN 8.8 g/dL (12.0-18.0); MEAN CORPUSCULAR HEMOGLOBIN 27 pg (27-31); MEAN CORPUSCULAR HGB CONC 32 g/dL (33-37); MEAN CORPUSCULAR VOLUME 84 fL (80-94); PLATELET COUNT (AUTO) 468 K/uL (140-450); RED BLOOD CELL COUNT(AUTO) 3.32 MIL/uL (4.20-6.10); RED CELL DISTRIBUTION WIDTH 19.3 % (11.6-13.7)
[2017-05-30 06:37] LABS: ANION GAP 19.9 (8-16); CARBON DIOXIDE 23.7 mmol/L (21-32); POTASSIUM 4.6 mmol/L (3.5-5.1)
[2017-05-30 06:42] LABS: CREATININE 10.1 mg/dL (0.7-1.3)
[2017-05-30 07:03] LABS: EOSINOPHILS % (MANUAL) 1 % (0-4); LYMPHOCYTES % (MANUAL) 5 % (20-46); MONOCYTES % (MANUAL) 7 % (5-12)
--- NOTE | 2017-05-30 07:16 | NUR ---
ENDORSED TO THE NEXT RN FOR CONTINUITY OF CARE. NO COMPLAINTS DONE. TELEMETRY MONITORING.
--- NOTE | 2017-05-30 07:24 | NUR ---
RECEIVED PATIENT REPORT FROM EVENING NURSE. PATIENT ASLEEP IN BED. NO SIGNS AND SYMPTOMS OF DISTRESS NOTED. PATIENT IN STABLE CONDITION. IV SITE NOTED RIGHT FOREARM, ASYMPTOMATIC, INTACT, PATENT. UPPER ARM AV SHUNT NOTED ON LEFT SIDE. BRUIT AND THRILL NOTED. PATIENT ON 7L O2 VIA OXYMIZER. BED IN LOWEST POSITION, SIDE RAILS UP, AND CALL LIGHT WITHIN REACH. WILL CONTINUE TO MONITOR.
[2017-05-30] MEDS: ALBUTEROL SULFATE/IPRATROPIU 3 ML SOL IH SCH ×3 (07:44→19:12)
[2017-05-30 08:00] VITALS: BP 155/102
[2017-05-30] MEDS: VIT-B COMP/VIT-C/FOLIC ACID 1 TAB PO SCH (08:21)
[2017-05-30] MEDS: METOPROLOL SUCCINATE 50 MG TABER PO SCH (08:21)
[2017-05-30] MEDS: LACTOBACILLUS RHAMNOSUS GG 1 EACH CAP PO SCH (08:21)
[2017-05-30] MEDS: AMIODARONE 200 MG TAB PO SCH (08:22)
[2017-05-30] MEDS: CALCIUM ACETATE 667 MG TAB PO SCH ×3 (08:22→17:36)
[2017-05-30] MEDS: LOSARTAN 50 MG TAB PO SCH (09:01)
[2017-05-30 12:00] VITALS: BP 130/83
--- NOTE | 2017-05-30 12:00 | NUR ---
PATIENT'S FAMILY VISITED
--- NOTE | 2017-05-30 12:29 | NUR ---
PT DID NOT WANT BREATHING TX AT THIS TIME. PT STATES HE WANTS TO EAT. WILL CHECK BACK AT A LATER TIME. PT IS NOT SOB AND NOT IN RESPIRATORY DISTRESS.
[2017-05-30] MEDS: DEXT 5% / NACL 0.45% 1,000 ML IV SCH (13:55)
[2017-05-30] MEDS ORDERED: LEVOFLOXACIN 250 MG/D5 PREMIX 50 ML IV SCH (15:00)
[2017-05-30 16:00] VITALS: BP 151/95
[2017-05-30] MEDS: RIVAROXABAN 15 MG TAB PO SCH (17:40)
--- NOTE | 2017-05-30 17:44 | NUR ---
SPOKE WITH DR SADLER AND ASKED ABOUT HEMODIALYSIS ORDER. DR BAKER PUT ORDERS LATER
--- NOTE | 2017-05-30 19:30 | NUR ---
ENDORSED PLAN OF CARE TO EVENING NURSE AT PATIENT'S BEDSIDE. PATIENT IS IN STABLE CONDITION.
--- NOTE | 2017-05-30 19:31 | NUR ---
RECEIVED REPORT FROM AM NURSE. PT AOX4, ABLE TO MAKE NEEDS KNOWN. WITH AN OXIMIZER AT 7 L, WELL TOLERATED BY THE PATIENT. NO S/S OF DISTRESS. NO COMPLAINTS OF PAIN AT THIS TIME. WITH A IV TO THE RIGHT 22 FA, INTACT AND PATENT. WITH A RIGHT WRIST 22 G S/L. WITH A LEFT UA AV SHUNT. SKIN IS INTACT. ON A FLUID RESTRICTION OF 1500 ML. ON TELE MONITOR. RE-ORIENTED PATIENT TO THE UNIT, VERBALIZED UNDERSTANDING. WILL CONTINUE TO MONITOR. ALL NEEDS ATTENDED. CALL LIGHT WITHIN REACH. SAFETY CHECKS IN PLACE.
[2017-05-30 20:00] VITALS: BP 151/91
--- NOTE | 2017-05-30 20:01 | NUR ---
CALLED [facility] AND LEFT MESSAGE ON NUMBER #[phone] FOR HEMODIALYSIS TOMORROW 05/31/17 AT 0800.
[2017-05-30] MEDS: ATORVASTATIN 20 MG TAB PO SCH (20:11)
--- NOTE | 2017-05-30 20:11 | NUR ---
DUE MEDS GIVEN, GIVEN NORCO FOR UPPER BODY PAIN, WELL TOLERATED BY PATIENT. WILL CONTINUE TO MONITOR FOR ANY CHANGES.
--- NOTE | 2017-05-30 21:22 | NUR ---
REHAN FROM [facility] CALLED BACK, MADE AWARE OF HEMODIALYSIS ORDER FOR TOMORROW.
[2017-05-31] VITALS: BP 150/54
--- NOTE | 2017-05-31 | NUR ---
VITAL SIGNS STABLE. NO S/S OF DISTRESS. COMPLAINED OF PAIN OF 6/10. WILL MEDICATE ORDERED.
--- NOTE | 2017-05-31 00:20 | NUR ---
MEDICATED PATIENT WITH NORCO DUE TO UPPER BODY PAIN OF 6/10. WILL CONTINUE TO MONITOR.
[2017-05-31] MEDS: HYDROcodone/APAP 7.5/325 MG 1 TAB PO PRN ×4 (00:22→17:22)
--- NOTE | 2017-05-31 02:29 | NUR ---
MADE ROUNDS. PATIENT ASLEEP. NO S/S OF DISTRESS. WILL CONTINUE TO MONITOR.
[2017-05-31 04:00] VITALS: BP 148/70
--- NOTE | 2017-05-31 04:00 | NUR ---
VITALS STABLE. NO S/S OF DISTRESS. COMPLAINED OF UPPER BODY PAIN. WILL MEDICATE ORDERED.
[2017-05-31] MEDS: ALBUTEROL SULFATE/IPRATROPIU 3 ML SOL IH SCH ×2 (06:57→12:59)
--- NOTE | 2017-05-31 07:05 | NUR ---
ENDORSED TO AM SHIFT NURSE FOR CONTINUITY OF CARE, IN STABLE CONDITION.
--- NOTE | 2017-05-31 07:05 | NUR ---
TITRATED OXYMIZER TO 4L. SPO2 REMAINS AT 97% AT THIS TIME. PT IS NOT SOB AND NOT IN RESPIRATORY DISTRESS. WILL CONTINUE TO MONITOR.
--- NOTE | 2017-05-31 07:30 | NUR ---
RECEIVED REPORT FROM UI APPLICATION DEVELOPER NURSE AT BEDSIDE. PT RECEIVING BREATHING TREATMENT. 22 GAUGE IV ON RIGHT FOREARM INTACT. DIALYSIS SHUNT ON LEFT ARM. SKIN INTACT. PT STABLE, WITHOUT SIGNS OF DISTRESS. BED IN LOW POSITION, CALL LIGHT WITHIN REACH. WILL CONTINUE TO MONITOR.
[2017-05-31 08:00] VITALS: BP 150/54
[2017-05-31 08:02] LABS: HEMATOCRIT 27.7 % (36-52); HEMOGLOBIN 9.1 g/dL (12.0-18.0); MEAN CORPUSCULAR HEMOGLOBIN 28 pg (27-31); MEAN CORPUSCULAR HGB CONC 33 g/dL (33-37); MEAN CORPUSCULAR VOLUME 84 fL (80-94); PLATELET COUNT (AUTO) 482 K/uL (140-450); RED CELL DISTRIBUTION WIDTH 19.9 % (11.6-13.7); WHITE BLOOD COUNT (AUTO) 27.5 K/uL (4.8-10.8)
[2017-05-31 08:09] LABS: ANION GAP 22.7 (8-16); POTASSIUM 4.7 mmol/L (3.5-5.1)
[2017-05-31 08:14] LABS: CREATININE 12.4 mg/dL (0.7-1.3)
[2017-05-31] MEDS: LACTOBACILLUS RHAMNOSUS GG 1 EACH CAP PO SCH (08:33)
[2017-05-31] MEDS: CALCIUM ACETATE 667 MG TAB PO SCH ×3 (08:33→17:20)
[2017-05-31] MEDS: VIT-B COMP/VIT-C/FOLIC ACID 1 TAB PO SCH (08:34)
--- NOTE | 2017-05-31 08:40 | NUR ---
AM SCHEDULED MEDS ADMINISTERED, NORCO ALSO ADMINISTERED FOR PAIN, WILL REASSESS PAIN IN 30MINUITES. PT TOLERATED WELL. PT STABLE ON 4.0L O2. BED IN LOW POSITION, CALL LIGHT WITHIN REACH. WILL CONTINUE TO MONITOR.
[2017-05-31] MEDS: AMIODARONE 200 MG TAB PO SCH ×2 (08:53→15:37)
[2017-05-31] MEDS: METOPROLOL SUCCINATE 50 MG TABER PO SCH ×2 (08:54→15:37)
[2017-05-31] MEDS: LOSARTAN 50 MG TAB PO SCH (08:54)
[2017-05-31 08:56] LABS: LYMPHOCYTES % (MANUAL) 6 % (20-46); MONOCYTES % (MANUAL) 6 % (5-12)
[2017-05-31] MEDS ORDERED: EPOETIN ALFA 10,000 UNITS/ML VIAL SUBQ SCH (09:00)
--- NOTE | 2017-05-31 10:36 | NUR ---
DIALYSIS NURSE ASHLEY NOW AT BEDSIDE. PT STABLE. WILL CONTINUE TO MONITOR.
--- NOTE | 2017-05-31 11:32 | NUR ---
Social Service Note: I provided Yady from [facility] with patient's clinical information packet to review for evaluation.
--- NOTE | 2017-05-31 11:59 | NUR ---
CM NOTE SPOKE WITH XIAO RE: LTAC EVAL FOR PATIENT.
[2017-05-31 12:00] VITALS: BP 145/88
--- NOTE | 2017-05-31 12:28 | NUR ---
ADMINISTERED SCHEDULED VITAMIN WITH LUNCH. PT TOLERATED WELL. PT STILL RECEIVING DIALYSIS. PT STABLE ON 4.0L O2 VIA OXYMIZER. NO SIGNS OF DISTRESS NOTED. BED IN LOW POSITION, CALL LIGHT WITHIN REACH. WILL CONTINUE TO MONITOR.
--- NOTE | 2017-05-31 13:07 | NUR ---
OXYMIZER TITRATED TO 3L. SPO2 REMAINS AT 96% AT THIS TIME. PT IS NOT SOB WILL CONTINUE TO MONITOR.
--- NOTE | 2017-05-31 13:18 | NUR ---
CM NOTE LEFT JEAN CLAUDERED A MESSAGE TP FOLLOW UP ON LTAC EVAL PH# [phone]. ZARI LINDQUIST.
[2017-05-31] MEDS: DEXT 5% / NACL 0.45% 1,000 ML IV SCH (13:55)
--- NOTE | 2017-05-31 14:40 | NUR ---
ASHLEY DOCUMENT PHOTOGRAPHER FINISHED. VS STABLE. NO DISTRESS NOTED IN PT. 3 L OUT.
--- NOTE | 2017-05-31 15:43 | NUR ---
MORNING BP MEDICATIONS GIVEN NOW, AFTER DIALYSIS. PT IS STABLE, NO SIGNS OF DISTRESS NOTED. BED IN LOW POSITION, CALL LIGHT WITHIN REACH. WILL CONTINUE TO MONITOR.
[2017-05-31 16:00] VITALS: BP 128/81
[2017-05-31] MEDS ORDERED: RIVA15TA1 PO (16:22)
[2017-05-31] MEDS ORDERED: NITR0.4T1 SL (16:22)
[2017-05-31] MEDS ORDERED: LORA-476 PO (16:22)
[2017-05-31] MEDS ORDERED: METO50TE2 PO (16:22)
[2017-05-31] MEDS ORDERED: ATOR20TA40 PO (16:22)
[2017-05-31] MEDS ORDERED: PHO667 PO (16:22)
[2017-05-31] MEDS ORDERED: ROB PO (16:22)
[2017-05-31] MEDS ORDERED: LOSA50TA1 PO (16:22)
[2017-05-31] MEDS ORDERED: PROC10I SUBQ (16:22)
[2017-05-31] MEDS ORDERED: AMIO200T10 PO (16:22)
[2017-05-31] MEDS ORDERED: NEP PO (16:22)
[2017-05-31] MEDS ORDERED: IPRA3AMP IH ×2 (16:22)
[2017-05-31] MEDS ORDERED: LACT10CA PO (16:22)
--- NOTE | 2017-05-31 17:00 | NUR ---
PT IS RESTING COMFORTABLY IN BED. NO DISTRESS NOTED. CALL LIGHT WITHIN REACH. WILL CONTINUE TO MONITOR.
[2017-05-31] MEDS: RIVAROXABAN 15 MG TAB PO SCH (17:22)
[2017-05-31 17:54] VITALS: BP 128/81
--- NOTE | 2017-05-31 18:00 | NUR ---
GAVE REPORT ON PT TO VALERIE BRADFORD AT [facility].
[2017-05-31] MEDS ORDERED: PNEUMOCOCCAL VACCINE 23 MCG/0.5 ML VIAL IMVAC SCH (18:05)
--- NOTE | 2017-05-31 18:07 | NUR ---
SPOKE PT'S MOTHER ON THE PHONE TO LET HER KNOW REGARDING TRANSFER.
[2017-05-31] MEDS ORDERED: ROC2I IV (18:42)
--- NOTE | 2017-05-31 19:00 | NUR ---
GAVE REPORT TO TRANSPORTERS. GAVE DC INSTRUCTIONS TO PT. PT SIGNED AND VERBALIZED UNDERSTANDING. ALL ID BANDS CUT OFF. PT IN STABLE CONDITION.
--- NOTE | 2017-05-31 19:05 | NUR ---
[facility]SP[facility] TRANSPORTED PT [place]. PT IN STABLE CONDITION. TOOK ALL BELONGINGS. Addendum: 06/01/17 at 0913 by Marli White RN TRANSPORTATION [facility]. PT IS GOING TO [facility].
== END 2017-05-31 19:05 | DRG 871 ==
LOC: MED 06:20 → MTU 08:54 → MIC 05-27 03:05 → MTU 05-29 14:35
PROVIDERS: ADMIT Family Medicine; ATTEND Family Medicine
PROC: 5A09457 Assistance with Respiratory Ventilation, 24-96 Consecutive Hours, Continuous Positive Airway Pressure (ICD-10-PCS; principal; 2017-05-26)
PROC: 5A2204Z Restoration of Cardiac Rhythm, Single (ICD-10-PCS; 2017-05-27)
PROC: 5A1D60Z (ICD-10-PCS; 2017-05-28)
DX: A41.9 Sepsis, unspecified organism (principal); E43 Unspecified severe protein-calorie malnutrition; J96.01 Acute respiratory failure with hypoxia; I50.43 Acute on chronic combined systolic (congestive) and diastolic (congestive) heart failure; J18.9 Pneumonia, unspecified organism; N18.6 End stage renal disease; I24.8 Other forms of acute ischemic heart disease; I13.2 Hypertensive heart and chronic kidney disease with heart failure and with stage 5 chronic kidney disease, or end stage renal disease; I47.1 Supraventricular tachycardia; I42.0 Dilated cardiomyopathy; Z82.49 Family history of ischemic heart disease and other diseases of the circulatory system; R65.20 Severe sepsis without septic shock; E83.39 Other disorders of phosphorus metabolism; F12.10 Cannabis abuse, uncomplicated; E78.1 Pure hyperglyceridemia; D63.8 Anemia in other chronic diseases classified elsewhere; F17.210 Nicotine dependence, cigarettes, uncomplicated; I48.0 Paroxysmal atrial fibrillation; B95.61 Methicillin susceptible Staphylococcus aureus infection as the cause of diseases classified elsewhere; I27.2 Other secondary pulmonary hypertension; Z59.0 Homelessness; Z83.3 Family history of diabetes mellitus; Z99.2 Dependence on renal dialysis; Z68.20 Body mass index [BMI] 20.0-20.9, adult; E11.22 Type 2 diabetes mellitus with diabetic chronic kidney disease
CPT/HCPCS: 36415; 36600; 71010; 80048; 80053; 80202; 82150; 82607; 82728; 82746; 82803; 83036; 83540; 83605; 83690; 83735; 83880; 84100; 84439; 84443; 84484; 84550; 85025; 85045; 85730; 86702; 86704; 86706; 86708; 86709; 86803; 87040; 87070; 87081; 87186; 87205; 87340; 89220; 90732; 93005; 94640; 94660; 96360; 96361; 99285; J0696; J0885; J1644; J1956; J2405; J2543; J2916; J3370; J3490; J7030; J7042; J7060; J7620; Q0092

== ENCOUNTER 2017-06-14 11:09 | Inpatient (IN) | payer OTHER ==
[~2017-06-14] VITALS: Ht 175.3 cm; Wt 65.5 kg
[~2017-06-14 11:09] MED LIST: AMIO200T10 PO; ATOR20TA40 PO; IPRA3AMP IH; LACT10CA PO; LORA-476 PO; LOSA50TA1 PO; METO50TE2 PO; NEP PO; NITR0.4T1 SL; PHO667 PO; PROC10I SUBQ; RIVA15TA1 PO; ROB PO; ROC2I IV
--- NOTE | 2017-06-14 11:09 | NUR ---
Patient BIBA ACLS, transferred to bed 3. RN evaluating patient at bedside.
[2017-06-14] MEDS ORDERED: ASPIRIN 325 MG TAB PO ONE (11:15)
[2017-06-14 11:19] VITALS: BP 133/77
--- NOTE | 2017-06-14 11:20 | NUR ---
41 M BIBA C/O MIDSTERNAL/RIGHTSIDED CP THAT STARTED AT APPROX 0900 PER PT; PT FROM [facility]; PT DENIES ANY C/O CHEST PAIN AT THIS TIME; AAOX4; PT TALKING IN FULL SENTENCES; CRACKLES BL IN LS; RR ARE EVEN AND UNLABORED; PT IS SINUS TACHYCARDIA ON CM; NAD; PATIENT POSITIONED FOR COMFORT; HOB ELEVATED; BEDRAILS UP X2; ER MD GUZMAN AWARE OF PT STATUS; WILL CONTINUE TO MONITOR
--- NOTE | 2017-06-14 11:20 | NUR ---
PT RECIEVED NITRO SL 0.5MG X 2 CHIEF ENGINEER; ONE DOSE BY PT; ANOTHER DOES BY DIALYSIS FACILITY PER PT
[2017-06-14 11:39] LABS: HEMOGLOBIN 7.1 g/dL (12.0-18.0); RED BLOOD CELL COUNT(AUTO) 2.57 MIL/uL (4.20-6.10); WHITE BLOOD COUNT (AUTO) 14.1 K/uL (4.8-10.8)
[2017-06-14 11:40] LABS: HEMATOCRIT 21.8 % (36-52); MEAN CORPUSCULAR HEMOGLOBIN 27 pg (27-31); MEAN CORPUSCULAR HGB CONC 32 g/dL (33-37); MEAN CORPUSCULAR VOLUME 84 fL (80-94); PLATELET COUNT (AUTO) 433 K/uL (140-450); RED CELL DISTRIBUTION WIDTH 19.4 % (11.6-13.7)
[2017-06-14 11:41] LABS: EOSINOPHILS # (AUTO) 0.9 K/uL (0-0.4); EOSINOPHILS % (AUTO) 6.5 % (0.0-4.0); LYMPHOCYTES # (AUTO) 1.9 K/uL (2.0-11.5); LYMPHOCYTES % (AUTO) 13.6 % (20.5-51.1); MONOCYTES # (AUTO) 0.8 K/uL (0.8-1.0); MONOCYTES % (AUTO) 5.9 % (1.7-9.3); NEUTROPHILS # (AUTO) 10.4 K/uL (1.8-7.7)
[2017-06-14 11:42] LABS: BASOPHILS # (AUTO) 0.1 K/uL (0.00-0.22)
[2017-06-14 11:50] LABS: ALBUMIN 2.4 g/dL (3.4-5.0); CARBON DIOXIDE 27.8 mmol/L (21-32); POTASSIUM 3.8 mmol/L (3.5-5.1); TOTAL BILIRUBIN 0.3 mg/dL (0.0-1.0)
[2017-06-14] MEDS ORDERED: MORPHINE SULFATE 4 MG/ML SYR IVP ONE (11:50)
--- NOTE | 2017-06-14 11:53 | NUR ---
PT COMPLAINING ON STABBING MIDSTERNAL CP; ER MD GUZMAN BY BEDSIDE; NEW ORDERS GIVEN; WILL CONTINUE TO MONITOR
--- NOTE | 2017-06-14 11:53 | NUR ---
REPEAT EKG DONE
--- NOTE | 2017-06-14 11:53 | NUR ---
Dr. Blanchard re-evaluating patient at bedside.
[2017-06-14 11:54] LABS: PROTHROMBIN TIME 10.7 secs (10.8-13.4)
[2017-06-14 11:57] LABS: CREATININE 9.4 mg/dL (0.7-1.3)
[2017-06-14] MEDS ORDERED: NITROGLYCERIN 0.4 MG TAB SL ONE ×2 (12:02→12:15)
[2017-06-14] MEDS ORDERED: ONDANSETRON 4 MG/2 ML VIAL ONE (12:03)
--- NOTE | 2017-06-14 12:06 | NUR ---
PT DENIES ANY CP AT THIS TIME; WILL CONTINUE TO MONTIOR
[2017-06-14] MEDS ORDERED: VANCOMYCIN 1,000 MG in DEXTROSE 5% 250 ML IV ONE (12:15)
[2017-06-14] MEDS ORDERED: ONDANSETRON 4 MG/2 ML VIAL IVP ONE (12:15)
[2017-06-14] MEDS ORDERED: ACETAMINOPHEN 325 MG TAB PO PRN (12:55)
[2017-06-14] MEDS ORDERED: MORPHINE SULFATE 2 MG/ML SYR IVP PRN (12:55)
[2017-06-14] MEDS ORDERED: ONDANSETRON 4 MG/2 ML VIAL IM/IVP PRN (12:55)
--- NOTE | 2017-06-14 13:04 | NUR ---
Patient will be admitted to care of Tito. Admited to Tele. Will go to room 117. Belongings list completed. Report to Jena BRADFORD.
[2017-06-14] MEDS ORDERED: PSYLLIUM 12.2 GM/PKT PO SCH (13:28)
[2017-06-14 13:31] LABS: CHOL/HDL RATIO 2.5 (1-4.5); FREE T4 (FREE THYROXINE) 1.14 ng/dL (0.76-1.46); PHOSPHORUS 5.1 mg/dL (2.5-4.9); THYROID STIMULATING HORMONE 2.25 uIU/mL (0.34-3.74)
--- NOTE | 2017-06-14 13:53 | NUR ---
PT CAME IN FROM ED VIA GURNEY. PT AMBULATED FROM GURNEY TO BED WITH A STEADY GAIT. PT HAS A 20 GAUGE IV TO THE RIGHT FOREARM AND A DIALYSIS SHUNT ON THE LEFT ARM. PT IS AAOX4, ON 2L O2 VIA NC. PT SKIN IS INTACT. ORIENTED PT TO ROOM, LIGHTS, CALL LIGHT. DISCUSSED PLAN OF CARE WITH PATIENT, PATIENT VERBALIZED UNDERSTANDING. PT IS STABLE, HE SHOWS NO SIGNS OF DISTRESS. BED IN LOW POSITION, CALL LIGHT WITHIN REACH. WILL CONTINUE TO MONITOR.
[2017-06-14] MEDS: NACL 0.9% 1,000 ML IV SCH (14:00)
[2017-06-14] MEDS: HYDROcodone/APAP 7.5/325 MG 1 TAB PO PRN (14:03)
--- NOTE | 2017-06-14 14:03 | NUR ---
PT C/O PAIN, NORCO GIVEN. PT TOLERATED WELL. WILL CONTINUE TO MONITOR.
[2017-06-14] MEDS ORDERED: guaiFENesin 20 MG/ML UDC PO PRN (14:30)
[2017-06-14] MEDS ORDERED: NITROGLYCERIN 0.4 MG TAB SL PRN (14:30)
[2017-06-14] MEDS ORDERED: LORazepam 1 MG TAB PO PRN (14:30)
[2017-06-14] MEDS ORDERED: ALBUTEROL SULFATE/IPRATROPIU 3 ML SOL IH PRN (14:30)
[2017-06-14] MEDS ORDERED: HEPARIN PER PHARMACY MC PRN (14:50)
[2017-06-14] MEDS ORDERED: hePARIN / DEXT 5% PREMIX 250 ML IV SCH (14:50)
[2017-06-14 15:00] VITALS: BP 127/80
--- NOTE | 2017-06-14 15:00 | NUR ---
TALKED TO DR. SEO REGARDING PT ONLY FINISHED 1 HOUR OF DIALYSIS AND THAT PT WANTS TO EAT. DR STATED SHE ALREADY MESSAGED DR. SADLER. DR WILL PUT IN ORDER FOR DIET.
--- NOTE | 2017-06-14 15:03 | NUR ---
PT IS STABLE, NO SIGNS OF DISTRESS NOTED. PT SLEEPING. BED IN LOW POSITION, CALL LIGHT WITHIN REACH. WILL CONTINUE TO MONITOR.
--- NOTE | 2017-06-14 16:00 | NUR ---
PER DR. SEO, NOT STARTING HEPARIN DRIP UNTIL DR. SADLER AND DR. SHIN SEE PT.
--- NOTE | 2017-06-14 17:00 | NUR ---
CHARGE NURSE DARIA BRADFORD CALLED AND SPOKE TO DIALYSIS NURSE REHAN MUÑIZ REGARDING DIALYSIS TODAY.
--- NOTE | 2017-06-14 17:15 | NUR ---
NEW IV WAS STARTED WITH THE HELP OF COLLEAGUE. PT IS STABLE, WITHOUT SIGNS OF DISTRESS. BED IN LOW POSITION, CALL LIGHT WITHIN REACH. WILL CONTINUE TO MONITOR.
[2017-06-14] MEDS: CALCIUM ACETATE 667 MG TAB PO SCH (17:25)
[2017-06-14] MEDS ORDERED: RIVAROXABAN 15 MG TAB PO SCH (18:00)
[2017-06-14] MEDS: ALBUTEROL SULFATE/IPRATROPIU 3 ML SOL IH SCH (19:03)
--- NOTE | 2017-06-14 19:28 | NUR ---
ENDORSED PT TO REPAIRER SASH AND DOOR RN FOR CONTINUITY OF CARE. PT IN STABLE CONDITION.
--- NOTE | 2017-06-14 19:30 | NUR ---
RECEIVED REPORT FROM DAY RN, PATIENT RESTING IN BED, AWAKE ALERT ORIENTED X4, NO S/S OF ACUTE DISTRESS NOTED, RESPIRATION EVEN AND UNLABORED. IV ON RT FA 22G IS NOT PATENT, WILL START A NEW IV LATER, LT ARM DIALYSIS SHUNT BRUIT AND THRILL. CALL LIGHT WITHIN REACH, SAFETY MEASURE ENSURED, WILL CONTINUE TO MONITOR.
[2017-06-14 20:00] VITALS: BP 123/66
--- NOTE | 2017-06-14 20:05 | NUR ---
CHARGE NURSE STARTED NEW IV 22G ON RT FOREARM. IV PATENT AND INTACT. OLD IV TAKEN OUT, TIP INTACT, NO ACTIVE BLEEDING AT THE SITE. PATIENT TOLERATED WELL.
--- NOTE | 2017-06-14 20:40 | NUR ---
DIALYSIS NURSE IN THE ROOM WITH THE PATIENT.
[2017-06-14] MEDS ORDERED: ATORVASTATIN 20 MG TAB PO SCH (21:00)
--- NOTE | 2017-06-14 21:04 | NUR ---
OMAR MURO STATED," DR. GAVIN WHO IS [employer] FORMER FOR DR. SADLER CANCELLED THE DIALYSIS FOR PATIENT TONIGHT DUE TO ELEVATED TROPONIN AND PATIENT STATED CHEST PAIN WHEN HAVING DIALYSIS THIS MORNING." DIALYSIS NURSE IS AWARE. DR. ODOM ALSO INSTRUCTED ME TO START HEPARIN DRIP ORDERED.
[2017-06-14] MEDS: hePARIN / DEXT 5% PREMIX 250 ML IV SCH (21:27)
--- NOTE | 2017-06-14 21:27 | NUR ---
HEPARIN DRIP 800 UNITS/HR STARTED. PATIENT TOLERATED WELL.
--- NOTE | 2017-06-14 21:30 | NUR ---
SPUTUM CUP LEFT AND BEDSIDE AND EXPLAINED TO PATIENT WHEN HE COUGHS UP ANY PHLEGM TO USE CUP AND THEN TO NOTIFY THE RN OR RESPIRATORY
--- NOTE | 2017-06-14 23:16 | NUR ---
PATIENT REQUESTED HHN TREATMENT, STATED HE FEELS ANXIOUS. BS CLEAR HR 92 SAO2 100% NO SIGNS OF RESP. DISTRESS NOTED
--- NOTE | 2017-06-14 23:26 | NUR ---
PATIENT STATED," I FEEL RESTLESSNESS, CAN'T I HAVE ATIVAN." ATIVAN 1MG GIVEN. WILL CONTINUE TO MONITOR.
[2017-06-15] VITALS: BP 141/78
--- NOTE | 2017-06-15 03:10 | NUR ---
SPUTUM COLLECTED, AND WAS SENT TO THE LAB.
--- NOTE | 2017-06-15 03:40 | NUR ---
OFFERED SOME CRACKERS PATIENT REQUESTED. PATIENT RESTING IN BED, NO S/S OF ACUTE DISTRESS NOTED, RESPIRATION EVEN AND UNLABORED, CALL LIGHT WITHIN REACH, WILL CONTINUE TO MONITOR.
[2017-06-15 03:53] LABS: ANION GAP 15.7 (8-16); CARBON DIOXIDE 27.6 mmol/L (21-32); POTASSIUM 5.3 mmol/L (3.5-5.1)
[2017-06-15 03:56] LABS: MAGNESIUM 2.1 mg/dL (1.8-2.4); PHOSPHORUS 8.8 mg/dL (2.5-4.9)
[2017-06-15 03:59] VITALS: BP 142/92
[2017-06-15 04:14] LABS: CREATININE 11.7 mg/dL (0.7-1.3)
--- NOTE | 2017-06-15 04:19 | NUR ---
RECEIVED CRITICAL LAB VALUE CREATININE 11.7, TROPONIN 3.028. MADE DR. ODOM AWARE. NO NEW ORDER RECEIVED AT THIS TIME. URINE COLLECTED FROM THE PATIENT, AND WILL SEND IT TO THE LAB.
[2017-06-15 04:21] LABS: BASOPHILS # (AUTO) 0.1 K/uL (0.00-0.22); BASOPHILS % (AUTO) 1.1 % (0.0-2.0); EOSINOPHILS # (AUTO) 0.6 K/uL (0-0.4); EOSINOPHILS % (AUTO) 4.2 % (0.0-4.0); HEMOGLOBIN 7.3 g/dL (12.0-18.0); LYMPHOCYTES # (AUTO) 2.5 K/uL (2.0-11.5); LYMPHOCYTES % (AUTO) 18.6 % (20.5-51.1); MEAN CORPUSCULAR HEMOGLOBIN 27 pg (27-31); MEAN CORPUSCULAR HGB CONC 32 g/dL (33-37); MEAN CORPUSCULAR VOLUME 85 fL (80-94); MONOCYTES # (AUTO) 1.1 K/uL (0.8-1.0); MONOCYTES % (AUTO) 8.3 % (1.7-9.3); NEUTROPHILS # (AUTO) 9.1 K/uL (1.8-7.7); NEUTROPHILS % (AUTO) 67.8 % (42.2-75.2); PLATELET COUNT (AUTO) 466 K/uL (140-450); RED BLOOD CELL COUNT(AUTO) 2.69 MIL/uL (4.20-6.10); RED CELL DISTRIBUTION WIDTH 19.1 % (11.6-13.7)
[2017-06-15] MEDS: hePARIN / DEXT 5% PREMIX 250 ML IV SCH ×2 (04:51→13:00)
--- NOTE | 2017-06-15 04:54 | NUR ---
PTT 33.9, DR. ODOM IS AWARE, AND DR SAID," FOLLOW THE HEPARIN PROTOCOL."
[2017-06-15] MEDS: HYDROcodone/APAP 7.5/325 MG 1 TAB PO PRN (04:59)
[2017-06-15] MEDS ORDERED: ALBUTEROL SULFATE/IPRATROPIU 3 ML SOL IH PRN (05:20)
[2017-06-15] MEDS ORDERED: ALBUTEROL 0.083% 2.5 MG/3 ML NEBU INH PRN (05:20)
[2017-06-15 06:07] LABS: WHITE BLOOD COUNT (AUTO) 13.4 K/uL (4.8-10.8)
[2017-06-15] MEDS: ALBUTEROL SULFATE/IPRATROPIU 3 ML SOL IH SCH ×2 (06:15→12:35)
--- NOTE | 2017-06-15 06:35 | NUR ---
PATIENT IS SLEEPING AT THIS TIME, NO S/S OF ACUTE DISTRESS NOTED, RESPIRATION EVEN AND UNLABORED, CALL LIGHT WITHIN REACH, SAFETY MEASURE ENSURED, WILL CONTINUE TO MONITOR
[2017-06-15 06:53] LABS: BILIRUBIN,URINE NEGATIVE (NEGATIVE); BLOOD, URINE 1+ (NEGATIVE); COLOR,URINE YELLOW (YELLOW); LEUKOCYTE ESTERASE ,URINE TRACE (NEGATIVE); NITRITE, URINE NEGATIVE (NEGATIVE); UGLUCOSE NEGATIVE (NEGATIVE)
[2017-06-15] MEDS ORDERED: BUDESONIDE 0.25 MG/2 ML NEBU INH SCH (07:30)
--- NOTE | 2017-06-15 07:32 | NUR ---
ENDORSED PLAN OF CARE TO DAY RN, PATIENT RESTING IN BED, NO S/S OF ACUTE DISTRESS NOTED, PATIENT IS IN STABLE CONDITION.
--- NOTE | 2017-06-15 07:35 | NUR ---
RECEIVED REPORT FROM NIGHT RN AT BEDSIDE. PT RESTING IN BED. AAOX4. NO S/S OF ACUTE DISTRESS. PT DENIES PAIN. IV SITE PATENT AND INTACT. LEFT UPPER ARM DIALYSIS ACCESS NOTED. ON O2 1L NC. PLAN OF CARE DISCUSSED WITH PT. PT VERBALIZED UNDERSTANDING. CALL LIGHT WITHIN REACH. SAFETY MEASURES ENSURED. WILL CONTINUE TO MONITOR.
[2017-06-15 07:47] VITALS: BP 144/76
[2017-06-15 07:50] LABS: APPEARANCE,URINE SLIGHTLY HAZY (CLEAR)
[2017-06-15 07:54] LABS: RBC,URINE 0-5 (RARE) /HPF (0-5); WBC,URINE 0-5 (RARE) /HPF (0-5)
--- NOTE | 2017-06-15 08:16 | NUR ---
PATIENT HAS BEEN SCREENED AND CATEGORIZED HIGH NUTRITION RISK. PATIENT WILL BE SEEN WITHIN 1-2 DAYS OF ADMISSION. 06/15/17-06/16/[address]
[2017-06-15] MEDS: CALCIUM ACETATE 667 MG TAB PO SCH ×2 (08:30→12:45)
--- NOTE | 2017-06-15 08:31 | NUR ---
AM MEDICATION GIVEN WITH EDUCATION. PT VERBALIZED UNDERSTANDING. PT TOLERATED WELL. WILL CONTINUE TO MONITOR.
[2017-06-15] MEDS ORDERED: LACTOBACILLUS RHAMNOSUS GG 1 EACH CAP PO SCH (09:00)
[2017-06-15] MEDS ORDERED: AMIODARONE 200 MG TAB PO SCH (09:00)
[2017-06-15] MEDS ORDERED: VIT-B COMP/VIT-C/FOLIC ACID 1 TAB PO SCH (09:00)
[2017-06-15] MEDS ORDERED: LOSARTAN 50 MG TAB PO SCH (09:00)
[2017-06-15] MEDS ORDERED: METOPROLOL SUCCINATE 50 MG TABER PO SCH (09:00)
[2017-06-15] MEDS ORDERED: PSYLLIUM 12.2 GM/PKT PO SCH (09:00)
--- NOTE | 2017-06-15 09:14 | NUR ---
LEFT MESSAGE FOR [facility] REGARDING DIALYSIS ORDER.
--- NOTE | 2017-06-15 09:37 | NUR ---
All clinicals were faxed to [facility] for bed and for Dr Arciniega to do angiogram. Patient will be going to [facility] for angiogram, accepting Dr Dennis and Dr Arciniega will be doing the angiogram. All clinical info faxed to [place] case management assistant.
[2017-06-15 09:49] VITALS: BP 129/76
--- NOTE | 2017-06-15 10:24 | NUR ---
FAXED REQUEST FOR MEDICAL RECORDS TO [facility].
[2017-06-15] MEDS ORDERED: PROC10I SUBQ (10:48)
[2017-06-15] MEDS ORDERED: METO50TE2 PO (10:48)
[2017-06-15] MEDS ORDERED: AMIO200T10 PO (10:48)
[2017-06-15] MEDS ORDERED: ATOR20TA40 PO (10:48)
[2017-06-15] MEDS ORDERED: LOSA50TA1 PO (10:48)
--- NOTE | 2017-06-15 11:42 | NUR ---
PT RESTING IN BED. HD AT BEDSIDE. NO S/S OF ACUTE DISTRESS. PT DENIES PAIN. WILL CONTINUE TO MONITOR.
[2017-06-15 12:00] VITALS: BP 129/74
[2017-06-15] MEDS: NACL 0.9% 1,000 ML IV SCH (12:55)
--- NOTE | 2017-06-15 13:35 | NUR ---
CM: CLINICAL REVIEW DONE.
--- NOTE | 2017-06-15 13:43 | NUR ---
DIALYSIS FINISHED. 2.0 LITERS OUT. NO S/S OF ACUTE DISTRESS. PT DENIES PAIN. WILL CONTINUE TO MONITOR.
--- NOTE | 2017-06-15 14:31 | NUR ---
1015 RECEIVED ORDER FOR TRANSFER TO [facility] FOR HOSPITAL UNIT CLERK. CALL PLACED TO [facility] TABITHA ORELLANA TO REQUEST BED. TABITHA STATED THAT HOSPITAL UNIT CLERK IS BOOKED FOR TODAY AND WILL CHECK BED AVAILABILITY AND CALL BACK. 1230 CALL FROM TABITHA AND PT CAN GO TO ROOM 240B AND RACHAEL WILL BE ACCEPTING NURSE AND TO CALL REPORT TO [phone] EXT [phone]. 1330 [facility] CALLED FOR ACLS TRANSPORT AND [facility] WILL BE AT 1430. PT AND HIS MOTHER RAZA BOTH INFORMED OF PLAN. MAP TO [facility] PROVIDED TO RAZA. PT STATED THAT HE CURRENTLY LIVES IN A [place]EL ON [facility] IN [place]. STATED THAT HE GOES TO [facility] AND CHAIR TIME IS 6AM. PT IS IN AGREEMENT TO TRANSFER TO [facility]
--- NOTE | 2017-06-15 15:09 | NUR ---
PT CLEARED FOR TRANSFER TO [place]. [facility] HERE TO SHEET LAYER PT. DISCHARGE INSTRUCTIONS PROVIDED. PT VERBALIZED UNDERSTANDING. PT TRANSFERRED WITH IV INTACT. PT REMAINS STABLE.
[2017-06-16 06:33] LABS: T4 (THYROXINE) 7.1 ug/dL (4.5-12.0)
[2017-06-16] MEDS ORDERED: EPOETIN ALFA 10,000 UNITS/ML VIAL SUBQ SCH (09:00)
== END 2017-06-15 15:09 | disposition short-term general hospital (02) | DRG 871 ==
LOC: MED 11:09 → MTU 13:06 → OBSVTOIN 13:06
PROVIDERS: ADMIT Family Medicine; ATTEND Family Medicine
PROC: 5A1D00Z (ICD-10-PCS; principal; 2017-06-14)
DX: A41.9 Sepsis, unspecified organism (principal); I21.4 Non-ST elevation (NSTEMI) myocardial infarction; J96.01 Acute respiratory failure with hypoxia; I50.43 Acute on chronic combined systolic (congestive) and diastolic (congestive) heart failure; E43 Unspecified severe protein-calorie malnutrition; J18.9 Pneumonia, unspecified organism; N18.6 End stage renal disease; I42.9 Cardiomyopathy, unspecified; I11.0 Hypertensive heart disease with heart failure; R65.20 Severe sepsis without septic shock; D64.9 Anemia, unspecified; Z99.2 Dependence on renal dialysis; F12.10 Cannabis abuse, uncomplicated; Z68.21 Body mass index [BMI] 21.0-21.9, adult; Z59.0 Homelessness
CPT/HCPCS: 36415; 36600; 71010; 80048; 80053; 81001; 82803; 83036; 83605; 83735; 83880; 84100; 84436; 84439; 84443; 84479; 84484; 85025; 85610; 85730; 86886; 86900; 86901; 87040; 87070; 87081; 87205; 93005; 94640; 96365; 96375; 99291; J1644; J2270; J2405; J3370; J7030; J7060; J7620; J7626; Q0092